=== PATIENT | male | born 1970 | race Hispanic/Latino ===

== ENCOUNTER 2018-02-15 11:38 | Emergency (ER) | payer OTHER ==
[2018-02-15 11:53] VITALS: TEMP 99.2
[2018-02-15] MEDS ORDERED: Vancomycin 1 gm/NS 200 ml 1 GM/200 ML BAG IVPB STA (12:26)
[2018-02-15] MEDS ORDERED: Piperacill/Tazo 3.375gm in Dex 3.375 GM/50 ML BAG IVPB STA (12:26)
--- NOTE | 2018-02-15 12:30 | C.PDOC ---
History Of Present Illness <Eugenia Segundo - Last Filed: 02/15/18 13:55> <Danuta Salgado - Last Filed: 02/15/18 16:43> 47-YEAR-OLD MALE, PRESENTS TO THE EMERGENCY DEPARTMENT WITH COMPLAINTS OF INCR R FACIAL SWELLING, NEW ONSET HYPOTENSION TODAY. 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 PS COMPLIANT W MEDS, LAST DOSE @ 0800. +[facility]. PS WENT TO [facility] FOR WORSENING SWELLING, NOTED TO BE HYPOTENSIVE. DENIES HO CHRONIC HYPOTENSION, OR TAKING HTN MEDS. CO R FACIAL DISCOMFORT, NO OTHER ASSOC SX EXAM MILD DIST NONTOXIC HEENT +R LOWER FACIAL SWELLING, NONPITTING W PERIPH ERYTHEMA. EOMI, NO PROPTOSIS. MMM NO STRIDOR, DROOL NECK SUPPLE SKIN +SCANT ERYTHEMA R FACE. NO FOCAL FLUCTUANCE. INTACT NEURO NO FOCAL DEF REMAINDER NEG (SanyaEugenia) History Per: Patient History/Exam Limitations: no limitations <Eugenia Segundo - Last Filed: 02/15/18 13:55> <Danuta Salgado - Last Filed: 02/15/18 16:43> Time Seen by Provider: 02/15/18 12:11 Chief Complaint (Nursing): Weakness/Neurological Deficit Past Medical History Reviewed: Historical Data, Nursing Documentation, Vital Signs - Medical History PMH: Anxiety, Back Problems, Crohn's Disease, Depression Family History: States: No Known Family Hx - Social History Hx Tobacco Use: No Hx Alcohol Use: Yes Hx Substance Use: Yes - Immunization History Hx Tetanus Toxoid Vaccination: No Hx Influenza Vaccination: No Hx Pneumococcal Vaccination: No <Eugenia Segundo - Last Filed: 02/15/18 13:55> Vital Signs: Last Vital Signs Temp 99.2 F 02/15/18 11:42 Pulse 80 02/15/18 15:27 Resp 20 02/15/18 15:27 BP 108/68 02/15/18 15:27 Pulse Ox 98 02/15/18 15:27 Review Of Systems Constitutional: Positive for: Chills. Negative for: Fever Cardiovascular: Negative for: Chest Pain Respiratory: Negative for: Cough, Shortness of Breath Gastrointestinal: Negative for: Nausea, Vomiting Skin: Positive for: Other (right facial swelling) Neurological: Negative for: Weakness, Numbness <Eugenia Segundo - Last Filed: 02/15/18 13:55> Physical Exam - Physical Exam Appears: Non-toxic, No Acute Distress Skin: Warm, Dry, Other ( +SCANT ERYTHEMA R FACE. NO FOCAL FLUCTUANCE. INTACT) Head: Atraumatic, Normacephalic, Other (+R LOWER FACIAL SWELLING, NONPITTING W PERIPH ERYTHEMA. EOMI, NO PROPTOSIS. MMM NO STRIDOR, DROOL) Eye(s): bilateral: Normal Inspection, PERRL, EOMI Nose: Normal Oral Mucosa: Moist Lips: Normal Appearing Throat: No Erythema, No Exudate, No Drooling, No Mass Neck: Normal ROM, Supple Cardiovascular: Rhythm Regular, No Murmur Respiratory: Normal Breath Sounds, No Accessory Muscle Use Gastrointestinal/Abdominal: Soft, No Tenderness, No Guarding, No Rebound Extremity: Normal ROM, No Deformity, No Swelling Neurological/Psych: Oriented x3, Normal Speech, Normal Cognition, Normal Cranial Nerves, Normal Motor, Normal Sensation, Normal Reflexes, Other (NO FOCAL DEF) <Eugenia Segundo - Last Filed: 02/15/18 13:55> ED Course And Treatment - Laboratory Results Result Diagrams: 02/15/18 13:29 02/15/18 13:29 ECG: Interpreted By Ia ECG Rhythm: Sinus Rhythm ECG Interpretation: Normal Rate From EC O2 Sat by Pulse Oximetry: 100 Pulse Ox Interpretation: Normal <Eugenia Segundo - Last Filed: 02/15/18 13:55> - Laboratory Results Result Diagrams: 02/15/18 13:29 02/15/18 13:29 <Danuta Salgado - Last Filed: 02/15/18 16:43> Progress - Data Reviewed Data Reviewed: Lab, Diagnostic imaging, Old records <Eugenia Segundo - Last Filed: 02/15/18 13:55> Disposition Counseled Patient/Family Regarding: Diagnosis - Disposition Disposition Time: 13:00 <Eugenia Segundo Last Filed: 02/15/18 13:55> Counseled Patient/Family Regarding: Studies Performed, Diagnosis, Need For Followup, Rx Given - Disposition Disposition Time: 16:40 <Danuta Salgado - Last Filed: 02/15/18 16:43> - Disposition Referrals: Tonya Gloria DMD [Staff Provider] - Priscila Riojas MD [Staff Provider] - Condition: STABLE Additional Instructions: FOLLOW UP WITH DR GLORIA FRIDAY OR FRIDAY, CALL OFFICE TOMORROW FOR APPOINTMENT RETURN TO ER IF YOUR SYMPTOMS WORSEN Prescriptions: traMADol [Ultram] 50 mg PO BID PRN #15 tab PRN Reason: pain Instructions: Boil (DC) Forms: [facility] (Albanian), General Discharge Instructions Print Language: LAO - Clinical Impression Clinical Impression: Facial swelling, Abscess of mandible - Scribe Statement The provider has reviewed the documentation as recorded by the Scribe (Nida Emerson) <Eugenia Segundo - Last Filed: 02/15/18 13:55> <Danuta Salgado - Last Filed: 02/15/18 16:43> - Scribe Statement All medical record entries made by the Scribe were at my direction and personally dictated by me. I have reviewed the chart and agree that the record accurately reflects my personal performance of the history, physical exam, medical decision making, and the department course for this patient. I have also personally directed, reviewed, and agree with the discharge instructions and disposition. (Eugenia Segundo) Physician Patient Turnover Patient Signed Over To: Danuta Salgado Handoff Comments: FU CT, LABS, DISPO <Eugenia Segundo - Last Filed: 02/15/18 13:55> Addendum <Eugenia Segundo - Last Filed: 02/15/18 13:55> <Danuta Salgado - Last Filed: 02/15/18 16:43> Addendum: 02/15/18 15:58 Accession No. : [id number] Patient Name / ID : [facility] / [id number] Exam Date : 02/15/2018 15:11:04 ( Approved ) Study Comment : Sex / Age : M / 47Y Creator : sally gallegos Dictator : Rick Hitchcock MD Straight Ruling Machine Operator : Kiss Machine Operator : Rick Hitchcock MD Approver2 : Report Date : 02/15/2018 15:28:32 My Comment : PROCEDURE: CT MAXILLOFACIAL BONES WITH CONTRAST HISTORY: R FACIAL SWELLING R/O ABSCESS COMPARISON: None. TECHNIQUE: Contiguous axial CT images of the maxillofacial bones were obtained following administration of IV contrast. Coronal and sagittal reformats were generated. Intravenous contrast Dose: 100 mL Omnipaque 300 Radiation dose: Total exam DLP = 942.8 mGy-cm. Findings NASAL BONES: Unremarkable. ORBITS: Unremarkable. PARANASAL SINUSES/ MASTOIDS: Mild mucosal thickening noted in the right maxillary sinus. MAXILLA: Unremarkable. MANDIBLE/ TEMPOROMANDIBULAR JOINTS: No evidence of acute fracture or dislocation. SKULL BASE: Unremarkable. TEMPORAL BONES: Middle ears and mastoid grossly unremarkable. OTHER FINDINGS: There are subcutaneous inflammatory changes at the right facial region adjacent to right mandible. There is enhancing wall collection measures 1.6 centimeter adjacent to the right mandible in the subcutaneous tissue suspicious for abscess formation.. IMPRESSION: Inflammatory changes and soft tissue swelling noted at the right facial region more prominent adjacent to the mandible. Subcutaneous 1.6 centimeter enhancing wall fluid collection seen adjacent to the right mandible suspicious for abscess formation. 02/15/18 16:[address] Gloria, who can see him in the office for follow up or afternoon. Patient offered admission but prefers to be discharged home with antibiotics. He has been taking Clindamycin and Doxycycline with mild improvement of his right facial swelling. Blood work not indicative of sepsis, and BP currently improved and stable. Patient instructed to continue antibiotics and follow up with Dr. Gloria. He understands that he should return to ED immediately if symptoms worsen, for admission. (Danuta Salgado)
[2018-02-15] MEDS ORDERED: Iohexol 300 100 ML IJ ONE (12:41)
[2018-02-15 13:27] LABS: VENOUS BLOOD GAS BASE EXCESS 0.8 mmol/L (0.0-2.0); VENOUS BLOOD GAS PCO2 49 mmHg (40-60); VENOUS BLOOD GAS PO2 13 mm/Hg (30-55); VENOUS BLOOD PH 7.35 (7.32-7.43)
[2018-02-15 13:34] LABS: BASO # 0.1 K/uL (0.0-0.2); BASO % 2.2 % (0.0-2.0); EOS % 0.7 % (0.0-4.0); LYMPH # 0.7 K/uL (1.0-4.3); LYMPH % 22.3 % (20.0-40.0); MEAN CORPUSCULAR HEMOGLOBIN 35.6 pg (27.0-31.0); MEAN CORPUSCULAR HGB CONC 35.9 g/dL (33.0-37.0); MEAN PLATELET VOLUME 7.4 fL (7.2-11.7); MONO # 0.3 K/uL (0.0-0.8); MONO % 9.3 % (0.0-10.0); NEUT % 65.5 % (50.0-75.0); NRBC % 0.1 % (0.0-2.0); RBC 2.56 Mil/uL (4.40-5.90); RED CELL DISTRIBUTION WIDTH 16.9 % (11.5-14.5)
[2018-02-15 13:37] LABS: HEMOGLOBIN 9.1 g/dL (12.0-18.0); WHITE BLOOD COUNT 3.1 K/uL (4.8-10.8)
[2018-02-15 13:42] LABS: INR 1.3; PROTHROMBIN TIME 14.1 SECONDS (9.7-12.2)
[2018-02-15] MEDS ORDERED: Sodium Chloride 0.9% 2,000 ML ONE (13:48)
[2018-02-15 13:49] LABS: ALB/GLOB RATIO 1.2 (1.0-2.1); ALBUMIN 4.2 g/dL (3.5-5.0); ALT/SGPT 30 U/L (21-72); AST/SGOT 19 U/L (17-59); BLOOD UREA NITROGEN 15 mg/dL (9-20); CALCIUM 8.9 mg/dl (8.6-10.4); GFR AFRICAN-AMERICAN > 60; GFR NON-AFRICAN AMERICAN > 60
[2018-02-15 13:57] LABS: URINE BILIRUBIN NEGATIVE (NEGATIVE); URINE BLOOD 1+ (NEGATIVE); URINE CLARITY Clear (Clear); URINE COLOR Amber (YELLOW); URINE GLUCOSE (UA) NORMAL (Normal); URINE LEUKOCYTE ESTERASE NEG Leu/uL (Negative); URINE PROTEIN 1+ mg/dL (NEGATIVE); URINE UROBILINOGEN NORMAL mg/dL (0.2-1.0)
[2018-02-15 14:39] VITALS: RESP 20
[2018-02-15 14:55] VITALS: O2SAT 98
[2018-02-15 15:41] VITALS: BP 108/68; PULSE 80
--- NOTE | 2018-02-15 15:47 | CT ---
PROCEDURE: CT MAXILLOFACIAL BONES WITH CONTRAST HISTORY: R FACIAL SWELLING R/O ABSCESS COMPARISON: None. TECHNIQUE: Contiguous axial CT images of the maxillofacial bones were obtained following administration of IV contrast. Coronal and sagittal reformats were generated. Intravenous contrast Dose: 100 mL Omnipaque 300 Radiation dose: Total exam DLP = 942.8 mGy-cm. Findings NASAL BONES: Unremarkable. ORBITS: Unremarkable. PARANASAL SINUSES/ MASTOIDS: Mild mucosal thickening noted in the right maxillary sinus. MAXILLA: Unremarkable. MANDIBLE/ TEMPOROMANDIBULAR JOINTS: No evidence of acute fracture or dislocation. SKULL BASE: Unremarkable. TEMPORAL BONES: Middle ears and mastoid grossly unremarkable. OTHER FINDINGS: There are subcutaneous inflammatory changes at the right facial region adjacent to right mandible. There is enhancing wall collection measures 1.6 centimeter adjacent to the right mandible in the subcutaneous tissue suspicious for abscess formation.. IMPRESSION: Inflammatory changes and soft tissue swelling noted at the right facial region more prominent adjacent to the mandible. Subcutaneous 1.6 centimeter enhancing wall fluid collection seen adjacent to the right mandible suspicious for abscess formation.
--- NOTE | 2018-02-15 16:32 | RAD ---
HISTORY: Sepsis Patient COMPARISON: No prior. FINDINGS: LUNGS: No active pulmonary disease. PLEURA: No significant pleural effusion identified, no pneumothorax apparent. CARDIOVASCULAR: Normal. OSSEOUS STRUCTURES: No significant abnormalities. VISUALIZED UPPER ABDOMEN: Normal. OTHER FINDINGS: None. IMPRESSION: No radiographic evidence of pneumonia.
== END 2018-02-15 17:05 | disposition home or self-care (01) ==
LOC: C.ER 11:38
DX: M27.2 Inflammatory conditions of jaws (principal); R22.0 Localized swelling, mass and lump, head
CPT/HCPCS: 70481; 71045; 80053; 81001; 82803; 82948; 83735; 84100; 85025; 85610; 85730; 87040; 87086; 96365; 96367; 99285; J2543; J3370; J7030; Q9967